=== PATIENT | female | born 1960 | race Caucasian/White ===

== ENCOUNTER 2016-11-05 10:15 | Emergency (ER) | payer BC ==
[2016-11-05] MEDS ORDERED: NALOXONE HCL 2 MG/2 ML ONE (11:09)
[2016-11-05] MEDS ORDERED: NALOXONE HCL 2 MG/2 ML IVP ONE ×2 (11:12→12:02)
[2016-11-05 11:21] LABS: BASOPHILS % 0.1 (0.0-1.5); EOSINOPHILS % 0.1 % (0.0-6.8); LYMPHOCYTES # 1.4 # k/uL (0.6-4.0); MEAN CORPUSCULAR HEMOGLOBIN 28.5 pg (28.0-34.0); MONOCYTES # 0.7 # k/uL (0.0-0.9); MONOCYTES % 6.1 % (0.0-11.0); NEUTROPHILS # 8.5 # k/uL (1.4-7.7)
[2016-11-05 11:27] LABS: APPEARANCE,URINE Clear (CLEAR); COLOR,URINE Yellow (YELLOW); OCCULT BLOOD,URINE Negative (NEGATIVE)
--- NOTE | 2016-11-05 11:39 | ED Physician Documentation ---
General Adult - HISTORIAN Historian: paramedics - HPI Stated Complaint: Mental Status Changes Chief Complaint: General Adult Onset: hours Timing: still present Severity: moderate Further Comments: yes (Pt is a 56 yo female with hx CVA, from which she recovered per , who takes narcotic pain med for back pain. Pt also has a frozen L shoulder. says that she was last alert and oriented 2 days ago, and gradually became obtunded. Yesterday, he says, he could not wake her up. Pt has been seen here previously for change in mental status, which was due to narcotic overdose, and pt recovered on previous occasion with narcan. Pt was given Narcan [employer] and again shortly after arrival here, and became more alert, but without return to baseline mental status. Pt fell and hit her head yesterday. 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.) - ROS CONST: other (pt unable to give ROS) - PAST HX Past History: hypertension, other (CVA, back & L shoulder pain, catarac R eye ) Allergies/Adverse Reactions: Allergies Allergy/AdvReac Type Severity Reaction Status Date / Time prochlorperazine edisylate Allergy Verified 11/05/16 10:28 [From Compazine] prochlorperazine maleate Allergy Verified 11/05/16 10:28 [From Compazine] Home Medications: Ambulatory Orders Medication Instructions Recorded Gabapentin [Neurontin] 900 mg PO TID 12/27/14 Cyclobenzaprine HCl [Flexeril] 10 mg PO TID 11/05/16 Fluoxetine HCl [Prozac] 40 mg PO DAILY 11/05/16 Ibuprofen [Advil] 800 mg PO Q8H PRN 11/05/16 Losartan Potassium [Cozaar] 25 mg PO HS 11/05/16 Losartan Potassium [Cozaar] 50 mg PO DAILY 11/05/16 Ranitidine HCl 150 mg PO Q12H 11/05/16 amLODIPine BESYLATE [Norvasc] 5 mg PO 0900 11/05/16 - SOCIAL HX Smoking History: non-smoker - FAMILY HX Family History: No - VITAL SIGNS Vital Signs: Vital Signs Temp Pulse Resp BP Pulse Ox 97 F L 102 H 26 H 121/60 95 11/05/16 10:15 11/05/16 10:15 11/05/16 10:15 12/27/14 16:54 11/05/16 10:15 - REVIEWED ASSESSMENTS Nursing Assessment Reviewed: Yes Vitals Reviewed: Yes Progress - Progress Progress: CT head w/o contrast: 1. Soft tissue swelling right frontal scalp. 2. Premature atrophy. 1 L NS IVF, then 100 cc/hr Narcan 1 mg IV x 2 limited change in MS elevated Cre=2.5 family says pt has no hx renal failure Zofran 4 mg IV Transfer to . Hosp. Dr. Sandra, change in mental status; renal failure. - EKG/XRAY/CT EKG: rhythm (Sinus tachycardia OX=831; normal axis; normal NE interval; low voltage.) XRAY: chest (no acute process) ED Results Lab/Radiology - Lab Results Lab Results: Lab Results 11/05/16 11/05/16 10:35 10:35 WBC 10.70 K/ul K/ul (4.00-12.00) RBC 4.13 M/ul M/ul (3.90-5.20) Hgb 11.8 g/dL L g/dL (12.0-16.0) Hct 39.3 % % (34.5-46.5) MCV 95.3 fl fl (80.0-100.0) MCH 28.5 pg pg (28.0-34.0) MCHC 29.9 g/dL L g/dL (30.0-36.0) RDW 13.2 % % (11.3-14.3) Plt Count 334 K/mm3 K/mm3 (130-400) Neut % (Auto) 79.5 % H % (39.0-79.0) Lymph % (Auto) 12.7 % L % (16.0-50.0) [place] % (Auto) 6.1 % % (0.0-11.0) Eos % (Auto) 0.1 % % (0.0-6.8) Baso % (Auto) 0.1 (0.0-1.5) Neut # 8.5 # k/uL H # k/uL (1.4-7.7) Lymph # 1.4 # k/uL # k/uL (0.6-4.0) [place] # 0.7 # k/uL # k/uL (0.0-0.9) Eos # 0.0 # k/uL # k/uL (0.0-0.6) Baso # 0.0 # k/uL # k/uL (0.0-0.5) Reactive Lymphs % 1.4 % % (0.0-5.0) Reactive Lymphs # 0.2 # k/uL # k/uL (0.0-0.8) Urine Color Yellow (YELLOW) Urine Appearance Clear (CLEAR) Urine pH 5.0 (5.0 - 8.0) Ur Specific [place] >=1.030 H (1.010-1.030) Urine Protein 1+ mg/dL H mg/dL (NEGATIVE) Urine Ketones Trace mg/dL mg/dL (NEGATIVE) Urine Occult Blood Negative (NEGATIVE) Urine Nitrite Negative (NEGATIVE) Urine Bilirubin 1+ H (NEGATIVE) Urine Urobilinogen 1.0 Eu Eu (0.2-1.0) Ur Leukocyte Esterase Negative (NEGATIVE) Urine Glucose Negative mg/dL mg/dL (NEGATIVE) - Orders Orders: ED Orders Category Date Time Status Place [place]/IV Now Care 11/05/16 10:26 Completed CHEST 1 VIEW [RAD] Stat Exams 11/05/[address] BRAIN W/O CONTRAST Stat Exams 11/05/16 Taken CBC/PLATELET/DIFF Routine Lab 11/05/16 10:35 Completed CMP Routine Lab 11/05/16 10:35 Received PT-INR Routine Lab 11/05/16 10:35 Received PTT Routine Lab 11/05/16 10:35 Received UDS [DRUG SCREEN URINE MEDICAL ONLY] Routine Lab 11/05/16 10:35 Received URINALYSIS Routine Lab 11/05/16 10:35 Completed Naloxone HCl [Narcan] Med 11/05/16 11:09 Discontinued 1 mg .ROUTE .STK-MED ONE Naloxone HCl [Narcan] Med 11/05/16 11:12 Discontinued 1 mg IVP NOW ONE EKG WITH COMPARISON Stat Ther 11/05/16 Ordered General Adult Physical Exam - PHYSICAL EXAM GENERAL APPEARANCE: moderate distress EENT: other (anisocoria, (chronic per report) R catarac.) NECK: normal inspection, supple RESPIRATORY: no resp distress, breath sounds normal, other (poor resp excursion ; SpO2 95% on NRB) CVS: tachycardia ABDOMEN: soft, no organomegaly, normal bowel sounds BACK: normal inspection, no CVA tenderness SKIN: other (abrasion on knees; swelling over R eye s/p fall; small decubitus ulcers on back) EXTREMITIES: non-tender, normal range of motion NEURO: other (obtunded; moves all extremities; LE DTR's reduced) Discharge Clincal Impression: Renal failure Change in mental status Qualifiers: Altered mental status type: unspecified Qualified Code(s): R41.82 - Altered mental status, unspecified Referrals: Primary Doctor,No [Primary Care Provider] - Home Medications: Ambulatory Orders Gabapentin [Neurontin] 900 mg PO TID 12/27/14 Cyclobenzaprine HCl [Flexeril] 10 mg PO TID 11/05/16 Fluoxetine HCl [Prozac] 40 mg PO DAILY 11/05/16 Ibuprofen [Advil] 800 mg PO Q8H PRN 11/05/16 Losartan Potassium [Cozaar] 25 mg PO HS 11/05/16 Losartan Potassium [Cozaar] 50 mg PO DAILY 11/05/16 Ranitidine HCl 150 mg PO Q12H 11/05/16 amLODIPine BESYLATE [Norvasc] 5 mg PO 0900 11/05/16 Condition: Stable Decision to Admit: NO Decision Time: 13:41
[2016-11-05] MEDS ORDERED: ONDANSETRON HCL/PF 4 MG/ 2ML VIAL ONE (12:13)
[2016-11-05] MEDS ORDERED: ONDANSETRON HCL/PF 4 MG/ 2ML VIAL IVP ONE (12:14)
--- NOTE | 2016-11-05 12:18 | Diagnostic Imaging Report ---
[facility] [address] [facility].[address] 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 Findings: Examination of the chest in single portable AP view 11/05/2016 1051 hours with no prior films for comparison demonstrates lungs to be clear. Cardiac silhouette is prominent and the aorta is atherosclerotic. Degenerative changes are seen in the shoulders. Impression: 1. Aortic atherosclerosis and left ventricular prominence. 2. No active disease. Electronically signed on Nov 05, 2016 11:19:38 AM SEASONAL SALES ASSOCIATE by: Richard FINNEY
[2016-11-05 12:48] LABS: AMPHETAMINE NEGATIVE ng/mL (<1000); BARBITURATES NEGATIVE ng/mL (<300); CANNABINOIDS NEGATIVE ng/mL (<50); COCAINE NEGATIVE ng/mL (<150); METHAMPHETAMINE NEGATIVE ng/mL (<1000); METHYLENEDIOXYMETHAMPHETAMINE NEGATIVE ng/mL (<500)
[2016-11-05] MEDS ORDERED: 0.9 % SODIUM CHLORIDE 1,000 ML IV ONE ×2 (13:00→13:27)
--- NOTE | 2016-11-05 13:20 | Diagnostic Imaging Report ---
[facility] [address] [facility].[address] 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 Technique: CT examination of the brain is performed in contiguous axial slices without the use of contrast. Sagittal and coronal reconstructions are performed by the technologist. Findings: The fourth ventricle lies in a normal midline position. The ventricles and sulci are prominent for the patient's age consistent with atrophy. There is no hypodense or hyperdense mass or intracranial hemorrhage. Soft tissue swelling is seen in the right frontal scalp. Impression: 1. Soft tissue swelling right frontal scalp. 2. Premature atrophy. Electronically signed on Nov 05, 2016 11:21:35 AM [place] by: Richard FINNEY
[2016-11-05 16:48] VITALS: BP 174/97
== END 2016-11-05 13:42 ==
LOC: ED 10:15
DX: N19 Unspecified kidney failure (principal); R41.82 Altered mental status, unspecified
CPT/HCPCS: 70450; 71010; 80053; 80377; 81002; 85025; 85610; 85730; J2310; J2405; J7030; 51701; 51702; 80356; 80361; 80365; 96361; 96374; 96375; 96376; 99283; G0477; G0480; G0482